=== PATIENT | female | born 1970 | race Caucasian/White ===

== ENCOUNTER 2021-11-08 01:45 | Emergency (ER) | payer OTHER ==
[2021-11-08 02:02] VITALS: BP 113/75; PULSE 68; RESP 18; TEMP 98; BMI 27.9
[2021-11-08 05:02] LABS: BASO % 1.1 % (0-2.0); EOS % 16.8 % (0-4.5); HEMATOCRIT 39.4 % (32.4-45.2); LYMPH % 27.8 % (8-40); MCH 28.6 pg (25.7-33.7); MEAN CELL VOLUME 86.7 fl (80-96); MEAN PLT VOLUME 8.9 fl (7.5-11.1); MONO % 4.9 % (3.8-10.2); NEUT % 49.4 % (42.8-82.8); PLATELET COUNT 246 10^3/uL (134-434); RBC 4.54 M/mm3 (3.60-5.2); RDW 14.5 % (11.6-15.6); WHITE BLOOD COUNT 14.3 K/mm3 (4.0-10.0)
[2021-11-08 05:21] LABS: CALCIUM 8.6 mg/dL (8.5-10.1)
[2021-11-08 05:22] LABS: ALBUMIN 3.3 g/dl (3.4-5.0); BLOOD UREA NITROGEN 19.6 mg/dL (7-18)
[2021-11-08 05:25] LABS: CREATININE 0.7 mg/dL (0.55-1.3)
[2021-11-08 05:26] LABS: BILIRUBIN,TOTAL 0.2 mg/dL (0.2-1); TOT PROT 7.8 g/dl (6.4-8.2)
== END 2021-11-08 06:09 | disposition home or self-care (01) ==
LOC: JER 01:45
DX: R07.82 Intercostal pain (principal)
CPT/HCPCS: 36415; 71045-TC-FY; 80053; 84484; 85025; 93005; 93010; 99285-25

== ENCOUNTER 2022-03-14 02:15 | Observation (INO) | payer OTHER ==
[2022-03-14 02:23] VITALS: BMI 29.6
[2022-03-14] MEDS ORDERED: morphine CARPU-JECT 2 MG/1 ML DISP.SYRIN IVPUSH ONE (02:42)
[2022-03-14 02:56] LABS: BASO % 0.8 % (0-2.0); EOS % 11.5 % (0-4.5); HEMATOCRIT 37.5 % (32.4-45.2); HEMOGLOBIN 12.4 GM/dL (10.7-15.3); MCH 28.6 pg (25.7-33.7); MEAN CELL VOLUME 86.7 fl (80-96); MEAN PLT VOLUME 9.9 fl (7.5-11.1); MONO % 4.8 % (3.8-10.2); NEUT % 50.9 % (42.8-82.8); PLATELET COUNT 209 10^3/uL (134-434); RBC 4.32 M/mm3 (3.60-5.2); RDW 13.7 % (11.6-15.6); WHITE BLOOD COUNT 8.7 K/mm3 (4.0-10.0)
[2022-03-14 03:03] LABS: INR 1.04 (0.83-1.09)
[2022-03-14 03:05] LABS: ACTIVATED PTT 26.3 SECONDS (25.2-36.5)
[2022-03-14 03:18] LABS: ALBUMIN 3.1 g/dl (3.4-5.0); CALCIUM 8.6 mg/dL (8.5-10.1)
[2022-03-14 03:19] LABS: BLOOD UREA NITROGEN 12.8 mg/dL (7-18)
[2022-03-14 03:22] LABS: CREATININE 0.5 mg/dL (0.55-1.3)
[2022-03-14 03:23] LABS: BILIRUBIN,TOTAL 0.2 mg/dL (0.2-1); TOT PROT 6.7 g/dl (6.4-8.2)
[2022-03-14 04:11] LABS: EPI CELLS >36 /uL (0-25.1); HYALINE CASTS 2 /uL (0-3.1); PH,URINE 5.5 (5.0-8.0); URINE APPEARANCE CLOUDY; URINE BACTERIA 609 /uL (0-1359); URINE BILIRUBIN NEGATIVE (NEGATIVE); URINE COLOR YELLOW; URINE GLUCOSE (UA) NEGATIVE (NEGATIVE); URINE KETONE NEGATIVE (NEGATIVE); URINE LEUK ESTERASE TRACE (NEGATIVE); URINE NITRITE NEGATIVE (NEGATIVE); URINE PROTEIN 1+ (NEGATIVE); URINE RBC 10 /uL (0-23.9); URINE UROBILINOGEN 0.2 mg/dL (0.2-1.0); URINE WBC 119 /uL (0-25.8)
[2022-03-14] MEDS ORDERED: ACETAMINOPHEN 1000 MG/100 ML BAG IVPB ONE (04:13)
[2022-03-14] MEDS ORDERED: ASPIRIN 81 MG CHEWABLE TABLETS PO ONE (04:23)
[2022-03-14] MEDS ORDERED: ACETAMINOPHEN INJECTION 100 ML IVPB ONE (04:26)
[2022-03-14] MEDS ORDERED: ASPIRIN 81 MG CHEWABLE TABLETS ONE (04:26)
[2022-03-14 04:37] LABS: URINE CRYSTALS NONE SEEN /hpf
[2022-03-14] MEDS ORDERED: METOCLOPRAMIDE HCL INJECTION 10 MG/2 ML VIAL IVPUSH ONE (05:08)
[2022-03-14] MEDS ORDERED: METOCLOPRAMIDE HCL INJECTION 10 MG/2 ML VIAL ONE (05:08)
[2022-03-14 08:56] LABS: OPIATES, URI NEGATIVE (NEGATIVE); URINE BARBITURATES NEGATIVE (NEGATIVE)
[2022-03-14 08:57] LABS: COCAINE, UR NEGATIVE (NEGATIVE); METHADONE, UR NEGATIVE (NEGATIVE); PHENCYCLIDINE,URINE NEGATIVE (NEGATIVE); URINE AMPHETAMINES NEGATIVE (NEGATIVE); URINE BENZODIAZEPINES NEGATIVE (NEGATIVE)
[2022-03-14 09:00] LABS: PHOSPHOROUS 3.8 mg/dL (2.5-4.9)
[2022-03-14] MEDS: ENOXAPARIN NA (PORCINE) 40 MG/0.4 ML DISP.SYRIN SQ SCH (09:51)
[2022-03-14] MEDS ORDERED: ENOXAPARIN NA (PORCINE) 40 MG/0.4 ML DISP.SYRIN SQ ONE (09:53)
[2022-03-14 12:39] LABS: EOS % 9.3 % (0-4.5); HEMATOCRIT 36.6 % (32.4-45.2); HEMOGLOBIN 12.2 GM/dL (10.7-15.3); LYMPH % 33.5 % (8-40); MCH 29.1 pg (25.7-33.7); MCHC 33.3 g/dl (32.0-36.0); MEAN CELL VOLUME 87.5 fl (80-96); MONO % 5.3 % (3.8-10.2); NEUT % 50.9 % (42.8-82.8); PLATELET COUNT 198 10^3/uL (134-434); RBC 4.18 M/mm3 (3.60-5.2); RDW 14.1 % (11.6-15.6); WHITE BLOOD COUNT 8.5 K/mm3 (4.0-10.0)
[2022-03-14 13:07] LABS: CALCIUM 8.6 mg/dL (8.5-10.1); MAGNESIUM 2.1 mg/dL (1.8-2.4)
[2022-03-14 13:08] LABS: BLOOD UREA NITROGEN 9.7 mg/dL (7-18)
[2022-03-14 13:10] LABS: CREATININE 0.5 mg/dL (0.55-1.3); PHOSPHOROUS 2.8 mg/dL (2.5-4.9)
[2022-03-14 13:12] LABS: BILIRUBIN,TOTAL 0.3 mg/dL (0.2-1); TOT PROT 6.4 g/dl (6.4-8.2)
[2022-03-14] MEDS ORDERED: ATORVASTATIN CA 80 MG TABLET (FP) PO SCH (22:00)
[2022-03-15 07:38] LABS: HEMOGLOBIN 12.3 GM/dL (10.7-15.3); MCH 29.1 pg (25.7-33.7); MCHC 33.1 g/dl (32.0-36.0); MEAN CELL VOLUME 87.7 fl (80-96); PLATELET COUNT 200 10^3/uL (134-434); RBC 4.22 M/mm3 (3.60-5.2); RDW 14.4 % (11.6-15.6); WHITE BLOOD COUNT 7.5 K/mm3 (4.0-10.0)
[2022-03-15 08:01] LABS: CALCIUM 8.5 mg/dL (8.5-10.1)
[2022-03-15 08:02] LABS: ALBUMIN 3.1 g/dl (3.4-5.0)
[2022-03-15 08:03] LABS: BLOOD UREA NITROGEN 14.4 mg/dL (7-18)
[2022-03-15 08:05] LABS: CREATININE 0.5 mg/dL (0.55-1.3)
[2022-03-15 08:06] LABS: BILIRUBIN,TOTAL 0.3 mg/dL (0.2-1); CHOLESTEROL 167 mg/dL (50-200); TOT PROT 6.4 g/dl (6.4-8.2)
[2022-03-15 08:07] LABS: TRIGLYCERIDES 100 mg/dL (0-150)
[2022-03-15 08:08] LABS: LDL CHOLESTEROL (ONLY SJRH) 90 mg/dL (5-100)
[2022-03-15 08:09] LABS: HDL CHOLESTEROL 62 mg/dL (40-60)
[2022-03-15 08:45] VITALS: RESP 16
[2022-03-15 08:59] LABS: ANISOCYTOSIS 0; HELMET CELLS 0; HOWELL-JOLLY BODIES 0; MACROCYTOSIS 0; OVALOCYTE 0; ROULEAU 0; SICKELED CELLS 0; TARGET CELLS 0; TEAR DROP CELLS 0; TOXIC GRANULATION 0
[2022-03-15] MEDS ORDERED: ASPIRIN 81 MG CHEWABLE TABLETS ONE (09:35)
[2022-03-15] MEDS ORDERED: ENOXAPARIN NA (PORCINE) 40 MG/0.4 ML DISP.SYRIN SQ ONE (09:36)
[2022-03-15] MEDS: ENOXAPARIN NA (PORCINE) 40 MG/0.4 ML DISP.SYRIN SQ SCH (09:52)
[2022-03-15] MEDS ORDERED: ASPIRIN 81 MG CHEWABLE TABLETS PO SCH (10:00)
[2022-03-15 13:06] VITALS: BP 104/59; PULSE 63; TEMP 97.8
== END 2022-03-15 14:10 | disposition left against medical advice (07) ==
LOC: JER 02:15 → JERBED 04:19
PROVIDERS: ADMIT Internal Medicine; ATTEND Internal Medicine
PROC: 3E033NZ Introduction of Analgesics, Hypnotics, Sedatives into Peripheral Vein, Percutaneous Approach (ICD-10-PCS; principal; 2022-03-14)
PROC: 3E023GC Introduction of Other Therapeutic Substance into Muscle, Percutaneous Approach (ICD-10-PCS; 2022-03-14)
PROC: 3E033GC Introduction of Other Therapeutic Substance into Peripheral Vein, Percutaneous Approach (ICD-10-PCS; 2022-03-14)
DX: R94.31 Abnormal electrocardiogram [ECG] [EKG] (principal); R10.12 Left upper quadrant pain; R07.9 Chest pain, unspecified; J45.909 Unspecified asthma, uncomplicated
CPT/HCPCS: 0241U-QW; 36415; 71046-TC-FY; 76700-TC; 80053; 80061; 80307; 81003; 83036; 83690; 83735; 84100; 84443; 84484; 85025; 85610; 85730; 87086; 93005; 93010; 93306-TC; 93351; 96372; 96374; 96375; 99285-25; G0378

== ENCOUNTER 2022-06-12 04:51 | Day surgery (SDC) | payer OTHER ==
[2022-06-12 04:55] VITALS: BMI 30.9
[2022-06-12] MEDS ORDERED: ACETAMINOPHEN 1000 MG/100 ML BAG IVPB ONE ×2 (05:12→22:48)
[2022-06-12] MEDS ORDERED: FAMOTIDINE 20 MG/50 ML IVPB 20 MG/50 ML MG IVPB ONE ×2 (05:12→05:25)
[2022-06-12] MEDS ORDERED: SODIUM CHLORIDE 0.9% 500 ML INFUS.BAG IV ONE (05:12)
[2022-06-12] MEDS ORDERED: ONDANSETRON 4 MG/2 ML VIAL IVPUSH ONE (05:12)
[2022-06-12] MEDS ORDERED: ONDANSETRON 4 MG/2 ML VIAL ONE (05:25)
[2022-06-12] MEDS ORDERED: ACETAMINOPHEN INJECTION 100 ML IVPB ONE (05:25)
[2022-06-12 06:59] LABS: BASO % 0.3 % (0-2.0); EOS % 3.6 % (0-4.5); HEMOGLOBIN 12.9 GM/dL (10.7-15.3); LYMPH % 17.6 % (8-40); MCH 29.2 pg (25.7-33.7); MCHC 33.9 g/dl (32.0-36.0); MEAN CELL VOLUME 86.1 fl (80-96); MEAN PLT VOLUME 10.9 fl (7.5-11.1); MONO % 3.9 % (3.8-10.2); NEUT % 74.6 % (42.8-82.8); PLATELET COUNT 271 10^3/uL (134-434); RBC 4.42 M/mm3 (3.60-5.2); RDW 13.7 % (11.6-15.6); WHITE BLOOD COUNT 13.7 K/mm3 (4.0-10.0)
[2022-06-12 07:19] LABS: POTASSIUM 3.8 mmol/L (3.5-5.1)
[2022-06-12 07:21] LABS: CALCIUM 9.2 mg/dL (8.5-10.1)
[2022-06-12 07:22] LABS: ALBUMIN 3.7 g/dl (3.4-5.0); BLOOD UREA NITROGEN 19.5 mg/dL (7-18)
[2022-06-12 07:25] LABS: CREATININE 0.7 mg/dL (0.55-1.3)
[2022-06-12 07:26] LABS: TOT PROT 7.3 g/dl (6.4-8.2)
[2022-06-12 07:27] LABS: BILIRUBIN,TOTAL 0.3 mg/dL (0.2-1)
[2022-06-12 07:46] LABS: LACTIC ACID 2.1 mmol/L (0.4-2.0)
[2022-06-12] MEDS ORDERED: LACTATED RINGERS SOLUTION 1000 ML INFUS.BAG IV ONE (07:53)
[2022-06-12] MEDS ORDERED: MAG HYDROX/AL HYDROX/SIMETH 30 ML UNIT-DOSE CUP PO ONE (09:05)
[2022-06-12] MEDS ORDERED: morphine SULFATE 4 MG/ML VIAL IVPUSH ONE (09:05)
[2022-06-12] MEDS ORDERED: ONDANSETRON 4 MG/2 ML VIAL IVPUSH PRN (09:32)
[2022-06-12] MEDS ORDERED: MAG HYDROX/AL HYDROX/SIMETH 30 ML UNIT-DOSE CUP ONE (09:32)
[2022-06-12] MEDS ORDERED: MAG HYDROX/AL HYDROX/SIMETH 30 ML UNIT-DOSE CUP PO PRN (09:38)
[2022-06-12 10:33] LABS: ACTIVATED PTT 26.8 SECONDS (25.2-36.5); INR 1.02 (0.83-1.09); PROTHROMBIN TIME (PATIENT) 11.8 SEC (9.7-13.0)
[2022-06-12] MEDS: DEXTROSE 5%-0.45% SALINE 1,000 ML IV SCH (13:42)
[2022-06-12] MEDS: MAG HYDROX/AL HYDROX/SIMETH 30 ML UNIT-DOSE CUP PO SCH (16:58)
[2022-06-12] MEDS: PANTOPRAZOLE 40 MG TABLET PO SCH (17:51)
[2022-06-13] MEDS: DEXTROSE 5%-0.45% SALINE 1,000 ML IV SCH ×3 (01:26→21:41)
[2022-06-13] MEDS: MAG HYDROX/AL HYDROX/SIMETH 30 ML UNIT-DOSE CUP PO SCH ×3 (06:44→17:29)
[2022-06-13] MEDS: PANTOPRAZOLE 40 MG TABLET PO SCH (09:17)
[2022-06-13 10:06] LABS: BASO % 0.5 % (0-2.0); EOS % 10.3 % (0-4.5); HEMATOCRIT 36.9 % (32.4-45.2); HEMOGLOBIN 12.5 GM/dL (10.7-15.3); LYMPH % 38.2 % (8-40); MCH 28.9 pg (25.7-33.7); MCHC 33.7 g/dl (32.0-36.0); MEAN CELL VOLUME 85.7 fl (80-96); MEAN PLT VOLUME 9.9 fl (7.5-11.1); MONO % 5.8 % (3.8-10.2); NEUT % 45.2 % (42.8-82.8); PLATELET COUNT 270 10^3/uL (134-434); RBC 4.31 M/mm3 (3.60-5.2); RDW 13.9 % (11.6-15.6); WHITE BLOOD COUNT 5.7 K/mm3 (4.0-10.0)
[2022-06-13 10:21] LABS: EPI CELLS >36 /uL (0-25.1); HYALINE CASTS 1 /uL (0-3.1); PH,URINE 6.5 (5.0-8.0); URINE APPEARANCE CLOUDY; URINE BACTERIA 671 /uL (0-1359); URINE BILIRUBIN NEGATIVE (NEGATIVE); URINE COLOR YELLOW; URINE GLUCOSE (UA) NEGATIVE (NEGATIVE); URINE KETONE NEGATIVE (NEGATIVE); URINE LEUK ESTERASE 1+ (NEGATIVE); URINE NITRITE NEGATIVE (NEGATIVE); URINE PROTEIN NEGATIVE (NEGATIVE); URINE RBC 10 /uL (0-23.9); URINE UROBILINOGEN 0.2 mg/dL (0.2-1.0); URINE WBC 83 /uL (0-25.8)
[2022-06-13] MEDS: ACETAMINOPHEN 1000 MG/100 ML BAG IVPB PRN (10:34)
[2022-06-13 11:13] LABS: POTASSIUM 4.2 mmol/L (3.5-5.1)
[2022-06-13 11:32] LABS: CALCIUM 9.2 mg/dL (8.5-10.1)
[2022-06-13 11:33] LABS: BLOOD UREA NITROGEN 5.4 mg/dL (7-18)
[2022-06-13 11:36] LABS: CREATININE 0.7 mg/dL (0.55-1.3)
[2022-06-14] MEDS: ACETAMINOPHEN 1000 MG/100 ML BAG IVPB PRN ×2 (05:55→20:14)
[2022-06-14] MEDS: MAG HYDROX/AL HYDROX/SIMETH 30 ML UNIT-DOSE CUP PO SCH ×3 (06:00→17:24)
[2022-06-14] MEDS: DEXTROSE 5%-0.45% SALINE 1,000 ML IV SCH ×2 (06:00→11:35)
[2022-06-14] MEDS ORDERED: BUPIVACAINE HCL/PF 0.25% (2.5MG/ML) 10 ML VIAL ONE (07:36)
[2022-06-14] MEDS ORDERED: MIDAZOLAM HCL 2 MG/2 ML SINGLE DOSE VIAL ONE (08:15)
[2022-06-14] MEDS ORDERED: cefOXitin SODIUM 2 GM VIAL (RESTRICTED TO ID) IVPB ONE ×2 (08:17→08:30)
[2022-06-14] MEDS ORDERED: PROPOFOL 20 ML ONE (08:47)
[2022-06-14] MEDS ORDERED: BUPIVACAINE HCL/PF 0.25% (2.5MG/ML) 10 ML VIAL IJ ONE (08:52)
[2022-06-14] MEDS ORDERED: NEOSTIGMINE METHYLSULFATE 0.5 MG/1 ML - 10 ML MDV ONE (08:57)
[2022-06-14] MEDS ORDERED: oxyCODONE HCL 5 MG TABLET PO PRN (09:43)
[2022-06-14] MEDS: PANTOPRAZOLE 40 MG TABLET PO SCH (11:37)
[2022-06-14] MEDS: ONDANSETRON 4 MG/2 ML VIAL IVPUSH PRN ×2 (12:10→16:11)
[2022-06-14 13:05] LABS: HEMATOCRIT 36.2 % (32.4-45.2); HEMOGLOBIN 12.1 GM/dL (10.7-15.3); MCH 28.6 pg (25.7-33.7); MCHC 33.3 g/dl (32.0-36.0); MEAN CELL VOLUME 85.9 fl (80-96); MEAN PLT VOLUME 9.8 fl (7.5-11.1); PLATELET COUNT 264 10^3/uL (134-434); RBC 4.22 M/mm3 (3.60-5.2); WHITE BLOOD COUNT 12.2 K/mm3 (4.0-10.0)
[2022-06-14 13:28] LABS: POTASSIUM 4.3 mmol/L (3.5-5.1)
[2022-06-14 13:30] LABS: CALCIUM 8.9 mg/dL (8.5-10.1)
[2022-06-14 13:31] LABS: BLOOD UREA NITROGEN 8.9 mg/dL (7-18)
[2022-06-14 13:33] LABS: CREATININE 0.6 mg/dL (0.55-1.3)
[2022-06-14] MEDS: oxyCODONE HCL 5 MG TABLET PO PRN (14:04)
[2022-06-14 16:10] VITALS: RESP 18
[2022-06-15] MEDS: oxyCODONE HCL 5 MG TABLET PO PRN ×2 (00:03→12:19)
[2022-06-15] MEDS: ACETAMINOPHEN 1000 MG/100 ML BAG IVPB PRN ×2 (04:02→11:31)
[2022-06-15] MEDS: MAG HYDROX/AL HYDROX/SIMETH 30 ML UNIT-DOSE CUP PO SCH ×3 (06:13→15:55)
[2022-06-15] MEDS: DEXTROSE 5%-0.45% SALINE 1,000 ML IV SCH ×2 (07:56→10:15)
[2022-06-15 09:11] LABS: BASO % 0.8 % (0-2.0); EOS % 3.2 % (0-4.5); HEMATOCRIT 34.9 % (32.4-45.2); HEMOGLOBIN 11.9 GM/dL (10.7-15.3); LYMPH % 26.2 % (8-40); MEAN CELL VOLUME 85.2 fl (80-96); MEAN PLT VOLUME 9.9 fl (7.5-11.1); MONO % 6.1 % (3.8-10.2); NEUT % 63.7 % (42.8-82.8); PLATELET COUNT 264 10^3/uL (134-434); RDW 14.2 % (11.6-15.6); WHITE BLOOD COUNT 8.1 K/mm3 (4.0-10.0)
[2022-06-15] MEDS: PANTOPRAZOLE 40 MG TABLET PO SCH (09:11)
[2022-06-15 09:32] LABS: POTASSIUM 4.3 mmol/L (3.5-5.1)
[2022-06-15 09:39] LABS: ALBUMIN 3.2 g/dl (3.4-5.0); CALCIUM 8.7 mg/dL (8.5-10.1)
[2022-06-15 09:40] LABS: BLOOD UREA NITROGEN 6.5 mg/dL (7-18)
[2022-06-15 09:41] LABS: CREATININE 0.7 mg/dL (0.55-1.3); TOT PROT 6.5 g/dl (6.4-8.2)
[2022-06-15 09:43] LABS: BILIRUBIN,TOTAL 0.3 mg/dL (0.2-1)
[2022-06-15] MEDS ORDERED: IBUPROFEN 600 MG TABLET (FP) PO SCH (10:30)
[2022-06-15 14:58] VITALS: BP 102/64; PULSE 78; TEMP 98
== END 2022-06-15 16:43 | disposition home or self-care (01) ==
LOC: JER 04:51 → UNDOADMOB 08:44 → JERBED 08:44 → J6S 13:53 → JERBED 13:53 → JASUSAT 06-14 10:23 → J6S 06-14 10:37 → JASUSAT 06-15 16:43
PROVIDERS: ATTEND Internal Medicine
PROC: 0FT44ZZ Resection of Gallbladder, Percutaneous Endoscopic Approach (ICD-10-PCS; principal; 2022-06-14 08:00)
DX: K81.0 Acute cholecystitis (principal)
CPT/HCPCS: 0241U-QW; 36415; 71045-TC-FY; 74177-TC; 76705-TC; 80048; 80053; 81003; 83605; 83690; 84484; 84702; 85025; 85027; 85610; 85730; 86850; 86900; 86901; 87040; 87086; 88304-TC; 93005; 93010; 94010; 94760; 99285-25